=== PATIENT | male | born 1975 | race African-American/Black ===

== ENCOUNTER 2023-02-25 22:07 | Emergency (ER) | payer OTHER, MEDICAID ==
[~2023-02-25] VITALS: Ht 172.7 cm; Wt 80.0 kg
[2023-02-25 22:17] VITALS: TEMP 98.7; O2SAT 98
[2023-02-25] MEDS ORDERED: FENTANYL CITRATE/PF 50MCG/ML 2ML VIAL IV ONE (22:45)
[2023-02-25] MEDS ORDERED: ONDANSETRON HCL 4MG/2ML INJ IV ONE (22:45)
[2023-02-25] MEDS ORDERED: ACETAMINOPHEN 325MG TABLET PO ONE (22:45)
[2023-02-25 23:01] LABS: BASOPHILS % 0.4 % (0.0-2.0); HEMATOCRIT. 36.5 % (42.0-52.0); HEMOGLOBIN. 11.7 g/dL (14.0-18.0); LYMPHOCYTES % 29.2 % (20.0-50.0); MEAN CORPUSCULAR HEMOGLOBIN 26.4 pg (28.0-32.0); MEAN CORPUSCULAR HGB CONC 32.1 g/dL (31.0-37.0); MEAN CORPUSCULAR VOLUME 82.5 fL (80.0-94.0); MEAN PLATELET VOLUME 8.5 fl (7.4-10.4); MONOCYTES % 9.9 % (2.0-8.0); NEUTROPHILS % 59.5 % (40.0-76.0); PLATELET 286 x1000/uL (130-400); RED BLOOD CELL COUNT 4.42 mill/uL (4.7-6.1); RED CELL DISTRIBUTION WIDTH 15.7 % (11.6-14.6); WHITE BLOOD COUNT 6.6 x1000/uL (4.5-11.0)
[2023-02-25 23:17] LABS: CHLORIDE 103 mEq/L (98-107); INDEX HEMOLYSI 3 (1-3); INDEX ICTERIC 1 (1-4); INDEX LIPEMIC 1 (1-3); POTASSIUM 4.3 mEq/L (3.5-5.1); SODIUM 136 mEq/L (136-145)
[2023-02-25 23:28] LABS: ALANINE AMINOTRANSFERASE 36 IU/L (13-61); ALBUMIN 3.5 g/dL (3.4-5.0); ASPARTATE AMINOTRANSFERASE 28 IU/L (15-37); BILIRUBIN TOTAL 0.4 mg/dL (0.1-1.0); CALCIUM 8.7 mg/dL (8.5-10.1); CARBON DIOXIDE 26 mEq/L (21-32); CREATININE 1.8 mg/dL (0.6-1.3); ETHANOL BLOOD < 10 mg/dL (<10); GLUCOSE 93 mg/dL (70-105); NT PRO B-TYPE NATRIURETIC PEP 405 pg/mL (5-125); PROTEIN TOTAL 8.1 g/dL (6.0-8.3); TROPONIN I HIGH SENSITIVITY 27 ng/L (<78); UREA NITROGEN BLOOD 25 mg/dL (7-21)
[2023-02-25 23:30] LABS: *AMPHETAMINES SCREEN URINE NEGATIVE (NEGATIVE); *BARBITURATES SCREEN URINE NEGATIVE (NEGATIVE); *BENZODIAZEPINES SCREEN URINE NEGATIVE (NEGATIVE); *COCAINE SCREEN URINE NEGATIVE (NEGATIVE); CANNABINOID URINE SCREEN NEGATIVE (NEGATIVE); ECSTASY MDMA SCREEN URINE NEGATIVE (NEGATIVE); OPIATES URINE SCREEN NEGATIVE (NEGATIVE); PHENCYCLIDINE URINE SCREEN NEGATIVE (NEGATIVE)
[2023-02-26 00:17] VITALS: BP 158/70; PULSE 78; RESP 16
== END 2023-02-26 00:32 | disposition home or self-care (01) ==
LOC: ER 22:07
DX: E87.1 Hypo-osmolality and hyponatremia (principal); E86.0 Dehydration; E11.9 Type 2 diabetes mellitus without complications; I10 Essential (primary) hypertension; Z00.00 Encounter for general adult medical examination without abnormal findings
CPT/HCPCS: 36415; 71045; 73552; 80053; 80305; 80320; 83880; 84484; 85025; 93005; 99285; G0480

== ENCOUNTER 2023-05-13 18:49 | Emergency (ER) | payer OTHER, MEDICAID ==
[~2023-05-13] VITALS: Ht 172.7 cm; Wt 81.0 kg
[2023-05-13 18:50] VITALS: BP 126/100; PULSE 92; RESP 16; TEMP 99.2; O2SAT 100
[2023-05-13] MEDS ORDERED: ONDANSETRON 4MG ODT PO ONE (19:00)
[2023-05-13] MEDS ORDERED: SODIUM CHLORIDE 0.9% 1,000 ML IV ONE (19:45)
[2023-05-13 20:02] LABS: ALANINE AMINOTRANSFERASE 28 IU/L (10-49); ALBUMIN 4.4 g/dL (3.2-4.8); ASPARTATE AMINOTRANSFERASE 59 IU/L (<34); BILIRUBIN TOTAL 1.6 mg/dL (0.1-1.0); CALCIUM 9.6 mg/dL (8.7-10.4); CARBON DIOXIDE 31 mEq/L (21-32); CHLORIDE 90 mEq/L (98-107); GLUCOSE 166 mg/dL (70-105); POTASSIUM 4.4 mEq/L (3.5-5.1); PROTEIN TOTAL 8.6 g/dL (6.0-8.3); SODIUM 131 mEq/L (136-145); TROPONIN I HIGH SENSITIVITY 33 ng/L (3.0-53); UREA NITROGEN BLOOD 43 mg/dL (9-23)
[2023-05-13 20:03] LABS: BASOPHILS % 0.2 % (0.0-2.0); HEMATOCRIT. 35.5 % (42.0-52.0); HEMOGLOBIN. 11.5 g/dL (14.0-18.0); LYMPHOCYTES % 11.4 % (20.0-50.0); MEAN CORPUSCULAR HGB CONC 32.5 g/dL (31.0-37.0); MEAN CORPUSCULAR VOLUME 83.1 fL (80.0-94.0); MEAN PLATELET VOLUME 8.6 fl (7.4-10.4); MONOCYTES % 6.8 % (2.0-8.0); NEUTROPHILS % 81.6 % (40.0-76.0); PLATELET 266 x1000/uL (130-400); RED BLOOD CELL COUNT 4.27 mill/uL (4.7-6.1); RED CELL DISTRIBUTION WIDTH 14.4 % (11.6-14.6)
== END 2023-05-13 22:54 | disposition left against medical advice (07) ==
LOC: ER 18:49
DX: R11.2 Nausea with vomiting, unspecified (principal); E11.9 Type 2 diabetes mellitus without complications; I10 Essential (primary) hypertension
CPT/HCPCS: 99283; 80053; 83690; 85025; 84484; 36415; Q0162; J7030